=== PATIENT | male | born 1970 | race Caucasian/White ===

== ENCOUNTER 2017-02-11 21:10 | Emergency (ER) | payer MEDICAID ==
[~2017-02-11] VITALS: Ht 162.6 cm; Wt 63.0 kg
[~2017-02-11 21:10] MED LIST: IBUP-1510 PO; Potassium Chloride PO
[2017-02-11 22:42] LABS: BASOPHILS % 0.4 % (0.0-2.0); EOSINOPHILS % 4.8 % (0.0-5.0); HEMATOCRIT. 24.2 % (42.0-52.0); HEMOGLOBIN. 8.4 g/dL (14.0-18.0); LYMPHOCYTES % 19.1 % (20.0-50.0); MEAN CORPUSCULAR HEMOGLOBIN 33.4 pg (28.0-32.0); MEAN CORPUSCULAR HGB CONC 34.5 g/dL (31.0-37.0); MEAN CORPUSCULAR VOLUME 96.8 fL (80.0-94.0); MEAN PLATELET VOLUME 7.1 fl (7.4-10.4); MONOCYTES % 7.6 % (2.0-8.0); NEUTROPHILS % 68.1 % (40.0-76.0); PLATELET 210 x1000/uL (130-400); RED CELL DISTRIBUTION WIDTH 15.5 % (11.6-14.6); WHITE BLOOD COUNT 4.9 x1000/uL (4.5-11.0)
[2017-02-11 22:47] LABS: CHLORIDE 105 mEq/L (98-107); INDEX HEMOLYSI 1 (1-3); INDEX ICTERIC 1 (1-4); INDEX LIPEMIC 1 (1-3)
[2017-02-11 22:49] LABS: INR 1.3; PROTHROMBIN TIME 13.5 sec
[2017-02-11 22:55] LABS: ALANINE AMINOTRANSFERASE 18 IU/L (13-61); ALBUMIN 2.4 g/dL (3.4-5.0); ANION GAP 13; CALCIUM 8.1 mg/dL (8.5-10.1); CARBON DIOXIDE 22 mEq/L (21-32); UREA NITROGEN BLOOD 37 mg/dL (7-21); eGFR 20 mL/min (>60)
[2017-02-11 23:45] VITALS: BP 130/70
== END 2017-02-11 23:45 | disposition home or self-care (01) ==
LOC: ER 21:11
DX: K76.9 Liver disease, unspecified (principal); N18.9 Chronic kidney disease, unspecified; Z79.1 Long term (current) use of non-steroidal anti-inflammatories (NSAID)
CPT/HCPCS: 36415; 80053; 85025; 85610; 86850; 86900; 99284